=== PATIENT | female | born 1990 | race Caucasian/White ===

== ENCOUNTER 2017-12-16 11:00 | Day surgery (SDC) | payer OTHER ==
[~2017-12-16] VITALS: Ht 162.6 cm; Wt 103.9 kg
[2017-12-16 11:34] LABS: HCG,QUAL RESULT NEGATIVE (NEGATIVE)
[2017-12-16] MEDS ORDERED: CEFAZOLIN 1 GM IVPB PREMIX 50 ML IV ONE (12:02)
[2017-12-16] MEDS ORDERED: SEVOFLURANE 15 MIN GAS INH ONE (13:45)
[2017-12-16] MEDS ORDERED: NS IRRIG SOLN 1000 ML IR ONE (13:45)
[2017-12-16] MEDS ORDERED: MIDAZOLAM HCL 5 MG/5 ML VIAL IVP ONE (13:45)
[2017-12-16] MEDS ORDERED: fentaNYL CITRATE 250 MCG/5 ML AMP IV ONE (13:45)
[2017-12-16] MEDS ORDERED: NS 1000 ML BAG IV ONE (13:45)
[2017-12-16] MEDS ORDERED: PROPOFOL 200MG/ 20ML VIAL (DIPRIVAN) IV ONE (13:45)
[2017-12-16] MEDS ORDERED: ONDANSETRON HCL 4 MG/2 ML VIAL IVP ONE (13:45)
[2017-12-16] MEDS ORDERED: ROCURONIUM BROMIDE 10 MG/ML (ZEMURON) IV ONE (13:45)
[2017-12-16] MEDS ORDERED: LR 1,000 ML IV SCH (14:31)
[2017-12-16] MEDS ORDERED: MORPHINE 4 MG/ML INJ. SYRINGE IVP PRN ×3 (14:45)
[2017-12-16] MEDS ORDERED: METOCLOPRAMIDE HCL 10 MG/2 ML VIAL IVP PRN (14:45)
[2017-12-16] MEDS ORDERED: D5/0.45 NS 1,000 ML IV SCH (16:05)
[2017-12-16] MEDS ORDERED: HYDROcodone/ACETAMIN 5-325 MG TAB (NORCO/ VICODIN) PO PRN ×2 (16:15)
[2017-12-16] MEDS ORDERED: HYDROmorphone 1 MG INJ. 1 MG/ML AMPUL IVP PRN (16:15)
[2017-12-16] MEDS ORDERED: MORPHINE 4 MG/ML INJ. SYRINGE ONE (16:49)
[2017-12-16 17:19] VITALS: BP_SYST 129
== END 2017-12-16 18:05 | disposition home or self-care (01) ==
LOC: SDS 11:00 → EDBD 11:10 → SMU 11:34 → SDS 18:05
PROVIDERS: ATTEND Colon & Rectal Surgery
DX: I83.91 Asymptomatic varicose veins of right lower extremity (principal); J45.901 Unspecified asthma with (acute) exacerbation; E66.01 Morbid (severe) obesity due to excess calories
CPT/HCPCS: 37735; 84703; 88304; J0690; J2250; J2270; J2405; J2704; J3010; J7030; J7120

== ENCOUNTER 2020-09-28 08:45 | Emergency (ER) | payer OTHER, SELFPAY ==
[~2020-09-28] VITALS: Ht 167.6 cm; Wt 72.6 kg
[2020-09-28 09:27] VITALS: BP_SYST 133
[2020-09-28 12:21] VITALS: BP_SYST 133
== END 2020-09-28 12:21 | disposition home or self-care (01) ==
LOC: SED 08:45
DX: U07.1 COVID-19 (principal); R07.89 Other chest pain; R11.2 Nausea with vomiting, unspecified
CPT/HCPCS: 71045; 93005; 99283

== ENCOUNTER 2021-02-04 22:00 | Emergency (ER) | payer OTHER, SELFPAY ==
[~2021-02-04] VITALS: Ht 162.6 cm; Wt 118.4 kg
[2021-02-04 22:12] VITALS: BP_SYST 147
[2021-02-04] MEDS ORDERED: NACL 0.9% 1,000 ML IV ONE (22:30)
[2021-02-04 22:35] LABS: BILIRUBIN,URINE 1+ (NEGATIVE); BLOOD, URINE NEGATIVE (NEGATIVE); CLARITY/URINE CLEAR (CLEAR); COLOR,URINE YELLOW (YELLOW); GLUCOSE,URINE NEGATIVE (NEGATIVE); KETONES,URINE 3+ (NEGATIVE); LEUKOCYTE ESTERASE ,URINE NEGATIVE (NEGATIVE); NITRITE, URINE NEGATIVE (NEGATIVE); PROTEIN URINE NEGATIVE (NEGATIVE)
[2021-02-04 22:51] LABS: BASOPHILS % (AUTO) 0.3 % (0.0-2.0); EOSINOPHILS # (AUTO) 0.3 K/uL (0.0-0.4); EOSINOPHILS % (AUTO) 3.3 % (0.0-4.0); HEMOGLOBIN 10.3 g/dL (12.0-16.0); LYMPHOCYTES % (AUTO) 20.7 % (20.5-51.5); MEAN CORPUSCULAR HEMOGLOBIN 23 pg (27-31); MEAN CORPUSCULAR HGB CONC 31 % (32-36); MEAN CORPUSCULAR VOLUME 74 fL (79.0-98.0); MONOCYTES # (AUTO) 0.7 K/uL (0.0-1.0); MONOCYTES % (AUTO) 7.1 % (1.7-9.3); NEUTROPHILS # (AUTO) 6.6 K/uL (1.8-7.7); NEUTROPHILS % (AUTO) 68.6 % (40.0-70.0); PLATELET COUNT (AUTO) 225 K/uL (130-430); RED BLOOD CELL COUNT(AUTO) 4.47 MIL/uL (4.2-6.2); RED CELL DISTRIBUTION WIDTH 17.2 % (9.0-15.0); WHITE BLOOD COUNT (AUTO) 9.6 K/uL (4.8-10.8)
[2021-02-04 22:53] LABS: CREATININE 0.95 mg/dL (0.55-1.30); POTASSIUM 3.9 mmol/L (3.5-5.1)
[2021-02-04 23:04] LABS: ALBUMIN 3.8 g/dL (3.4-4.8); TOTAL BILIRUBIN 0.9 mg/dL (0.0-1.0)
[2021-02-04 23:07] LABS: BACTERIA,URINE FEW /HPF (None Seen); RBC,URINE 0-3 /HPF (0-3); WBC,URINE 0-3 /HPF (0-3)
[2021-02-05] MEDS ORDERED: NACL 0.9% 1,000 ML IV ONE
[2021-02-05] MEDS ORDERED: IOHEXOL 350 mgI/mL, 150 ML INFUS..BTL IV ONE (03:31)
[2021-02-05] MEDS ORDERED: PANTOPRAZOLE SODIUM 40 MG/VIAL (PROTONIX) ONE (04:47)
[2021-02-05] MEDS ORDERED: PANTOPRAZOLE SODIUM 40 MG/VIAL (PROTONIX) IVP ONE (05:00)
[2021-02-05 05:07] VITALS: BP_SYST 132
== END 2021-02-05 05:07 | disposition home or self-care (01) ==
LOC: SED 22:00
DX: R13.10 Dysphagia, unspecified (principal); R06.02 Shortness of breath
CPT/HCPCS: 36415; 71275; 74018; 74176; 76376; 80053; 81000; 85025; 85379; 96361; 96374; 99285; C9113; J7030; Q9967

== ENCOUNTER 2023-08-25 14:27 | Emergency (ER) | payer OTHER ==
[~2023-08-25] VITALS: Ht 162.6 cm; Wt 102.1 kg
[2023-08-25 14:27] VITALS: BP_SYST 135; PULSE 78; RESP 19; TEMP 97.8; O2SAT 98
== END 2023-08-25 14:40 | disposition left against medical advice (07) ==
LOC: SED 14:27
DX: R06.02 Shortness of breath (principal); Z53.21 Procedure and treatment not carried out due to patient leaving prior to being seen by health care provider
CPT/HCPCS: 99281